=== PATIENT | female | born 1995 | race Caucasian/White ===

== ENCOUNTER 2016-05-02 16:03 | Emergency (ER) | payer OTHER ==
[2016-05-02 16:16] VITALS: BP 116/68
--- NOTE | 2016-05-02 16:27 | UC ---
Lower Extremity/Ankle HPI - HPI Summary HPI Summary: inverted foot 3d ago, felt it "pop". Went to [facility], XRay was reportedly negative but patient wants a second evaluation and opinion. "I don't trust them, my mother broke her hand and they missed it." Using crutches, hurts too much to bear weight. Mild swelling. - History of Current Complaint Chief Complaint: UCLowerExtremity Stated Complaint: RIGHT FOOT Time Seen by Provider: 05/02/16 16:09 Hx Obtained From: Patient Hx Last Menstrual Period: unknown ?: Yes Onset/Duration: Sudden Onset, Lasting Days - 3 Severity Initially: Moderate Severity Currently: Moderate Aggravating Factor(s): Standing, Ambulation Alleviating Factor(s): Rest, Elevation, Ice Able to Bear Weight: No - "It gives out and shoots pain all the way up my leg when I try to walk " - Risk Factors Gout Risk Factors: Negative DVT Risk Factors: Negative Septic Arthritis Risk Factor: Negative - Allergies/Home Medications Allergies/Adverse Reactions: Allergies Allergy/AdvReac Type Severity Reaction Status Date / Time Bee Venom Allergy Swelling Verified 05/02/16 16:12 seasonal Allergy Runny Nose Uncoded 05/02/16 16:12 Home Medications: Home Medications Folic Acid TAB* [Folvite TAB*] 1 mg PO DAILY 05/02/16 [History Confirmed ] PMH/Surg Hx/FS Hx/Imm Hx Respiratory History Of: Reports: Asthma - Surgical History Surgical History: None - Family History Known Family History: Positive: None, Hypertension, Other - fibroids Family History: no family history of cardio-vascular disorders - Social History Occupation: Employed Full-time Lives: With Family Alcohol Use: None Substance Use Type: None Smoking Status (MU): Former Smoker Type: Smokeless Tobacco Amount Used/How Often: daily Have You Smoked in the Last Year: Yes - chew When Did the Patient Quit Smoking/Using Tobacco: OCTOBER 2015 - Immunization History Most Recent Influenza Vaccination: March 2016 Vaccination Up to Date: Yes Review of Systems Constitutional: Negative Skin: Negative Eyes: Negative ENT: Negative Respiratory: Negative Cardiovascular: Negative Gastrointestinal: Negative Genitourinary: Negative Motor: Negative Neurovascular: Negative Musculoskeletal: Arthralgia, Decreased ROM, Edema, Myalgia Neurological: Negative Psychological: Negative All Other Systems Reviewed And Are Negative: Yes Physical Exam Triage Information Reviewed: Yes Appearance: Well-Appearing, No Pain Distress, Well-Nourished, Obese Vital Signs: Initial Vital Signs Temp 98.9 F 05/02/16 16:09 Pulse 116 05/02/16 16:09 Resp 18 05/02/16 16:09 BP 116/68 05/02/16 16:09 Pulse Ox 100 05/02/16 16:09 Vital Signs Reviewed: Yes Eye Exam: Normal Neck exam: Normal Respiratory Exam: Normal Cardiovascular Exam: Normal Musculoskeletal Exam: Other - mild swelling over lateral malleolus. Tenderness over lat malleolus and base 5th MT. No bruising Neurological Exam: Normal Psychological Exam: Normal Skin Exam: Normal Diagnostics - Laboratory Diagnostic Studies Completed/Ordered: xray neg Lower Extremity Course/Dx - Differential Dx/Diagnosis Differential Diagnosis/HQI/PQRI: Fracture (Closed), Sprain Provider Diagnoses: ankle sprain Discharge - Discharge Plan Condition: Stable Disposition: HOME Patient Education Materials: Ankle Sprain (ED), Ankle Exercises (GEN) Forms: *Work Release Referrals: [facility] [Primary Care Provider] -
--- NOTE | 2016-05-02 17:04 | RAD ---
Indication: Right foot injury and inversion. 3 views of the ankle demonstrates no fracture. No other bone or joint abnormalities identified. Ankle mortise is grossly intact. IMPRESSION: No fracture is noted.
--- NOTE | 2016-05-02 17:05 | RAD ---
Indication: Right foot injury and pain. 2 views of the right foot demonstrates no fracture or dislocation. No other bone or joint abnormality is noted. IMPRESSION: No fracture of the right foot is noted.
== END 2016-05-02 17:32 | disposition home or self-care (01) ==
LOC: UCCORT 16:03
DX: S93.401A Sprain of unspecified ligament of right ankle, initial encounter (principal); X50.9XXA Other and unspecified overexertion or strenuous movements or postures, initial encounter; Y92.9 Unspecified place or not applicable; Z87.891 Personal history of nicotine dependence
CPT/HCPCS: 99213; G0463